=== PATIENT | male | born 1970 | race American Indian/Alaskan Native ===

== ENCOUNTER 2017-10-23 21:52 | Emergency (ER) | payer SELFPAY ==
[2017-10-23 23:37] LABS: Hematocrit 49.6 % (35.5-45.6); Hemoglobin 16.2 gm/dl (11.8-15.2); Mean Corpuscular HGB Conc 33 % (32-34); Mean Corpuscular Hemoglobin 27 pg (28-32); Mean Corpuscular Volume 83 fl (84-94); Platelet Count 181 K/mm3 (140-440); Red Blood Count 5.98 M/mm3 (3.65-5.03); Red Cell Distribution Width 14.2 % (13.2-15.2)
--- NOTE | 2017-10-24 00:06 | XRay Report ---
FINAL REPORT PROCEDURE: XR CHEST ROUTINE 2V TECHNIQUE: PA and lateral chest radiographs were obtained. CPT 96417 HISTORY: shortness of breath COMPARISON: No prior studies are available for comparison. FINDINGS: Heart: Normal. Mediastinum/Vessels: Normal. Lungs/Pleural space: Normal. Bony thorax: No acute osseous abnormality. Other: IMPRESSION: There is no evidence of an acute cardiopulmonary process.
[2017-10-24 00:35] LABS: Bilirubin,Urine SM (Negative); Blood,Urine NEG (Negative); Color,Urine Amber (Yellow); Hyaline Casts,Urine 37 /LPF; Mucus,Urine 1+ /HPF
[2017-10-24 00:56] LABS: Ictotest,Urine Negative (Negative)
[2017-10-24 01:22] LABS: BUN/Creatinine Ratio 10; Blood Urea Nitrogen 10 mg/dL (9-20); Calcium 9.2 mg/dL (8.4-10.2); Hemolysis Index 6
[2017-10-24] MEDS ORDERED: MOTRIN PO ONE (02:30)
[2017-10-24] MEDS ORDERED: NORCO 5/325 PO ONE (02:30)
--- NOTE | 2017-10-24 02:30 | Emergency Department Report ---
ED Fever HPI - General Chief Complaint: Upper Respiratory Infection Stated Complaint: FLU SX Time Seen by Provider: 10/24/17 02:25 Source: patient - History of Present Illness Timing/Duration: other (2 weeks) Fever Severity/Quality: subjective Associated Symptoms: cough, muscle aches, sore throat ED Review of Systems ROS: Stated complaint: FLU SX Other details as noted in HPI ED Past Medical Hx - Past Medical History Previous Medical History?: No - Surgical History Past Surgical History?: Yes Additional Surgical History: eye surgery - Social History Smoking Status: Current Every Day Smoker Substance Use Type: None ED Physical Exam - General Limitations: No Limitations General appearance: alert, in no apparent distress - Head Head exam: Present: atraumatic, normocephalic - Eye Eye exam: Present: normal appearance - ENT ENT exam: Present: normal orophraynx, mucous membranes moist - Neck Neck exam: Present: normal inspection. Absent: tenderness, meningismus - Respiratory Respiratory exam: Present: normal lung sounds bilaterally. Absent: respiratory distress, wheezes, rales, rhonchi - Cardiovascular Cardiovascular Exam: Present: regular rate, normal rhythm. Absent: systolic murmur, diastolic murmur, rubs, gallop - GI/Abdominal GI/Abdominal exam: Present: soft, normal bowel sounds. Absent: distended, tenderness, guarding, rebound - Rectal Rectal exam: Present: deferred - Extremities Exam Extremities exam: Present: normal inspection - Back Exam Back exam: Present: normal inspection - Neurological Exam Neurological exam: Present: alert, oriented X3 - Psychiatric Psychiatric exam: Present: normal affect, normal mood - Skin Skin exam: Present: warm, dry, intact, normal color. Absent: rash ED Course Vital Signs 10/23/17 10/24/17 22:48 00:47 Temperature 99.0 F Pulse Rate 95 H 79 Respiratory 17 22 Rate Blood Pressure 127/89 125/81 O2 Sat by Pulse 96 73 L Oximetry ED Medical Decision Making - Lab Data Result diagrams: 10/23/17 23:07 10/23/17 23:07 Laboratory Results - last 24 hr 10/23/17 10/23/17 10/24/17 23:07 23:07 Unknown WBC 5.0 RBC 5.98 H Hgb 16.2 H Hct 49.6 H MCV 83 L MCH 27 L MCHC 33 RDW 14.2 Plt Count 181 [place] % (Auto) Cold Header Sodium 136 L Potassium 3.9 Chloride 88.3 L Carbon Dioxide 28 Anion Gap 24 BUN 10 Creatinine 1.0 Estimated GFR > 60 BUN/Creatinine Ratio 10 Glucose 90 Calcium 9.2 Urine Color [place] Urine Turbidity Clear Urine pH 5.0 Ur Specific [place] 1.038 H Urine Protein 100 mg/dl Urine Glucose (UA) Neg Urine Ketones 20 Urine Blood Neg Urine Nitrite Neg Urine Bilirubin Sm Urine Ictotest Negative Urine Urobilinogen 2.0 Ur Leukocyte Esterase Neg Urine WBC (Auto) 15.0 H Urine RBC (Auto) 10.0 U Epithel Cells (Auto) 6.0 Hyaline Casts 37 Urine Mucus 1+ Vital Signs - 24 hr 10/23/17 10/24/17 22:48 00:47 Temperature 99.0 F Pulse Rate 95 H 79 Respiratory 17 22 Rate Blood Pressure 127/89 125/81 O2 Sat by Pulse 96 73 L Oximetry - Medical Decision Making 2 weeks of fever, sore throat cough body aches. rx: amoxicillin for prolonged symptoms persistent pharyngitis, ibuprofen tylenol #3 hx of tobacco use Critical care attestation.: If time is entered above; I have spent that time in minutes in the direct care of this critically ill patient, excluding procedure time. ED Disposition Clinical Impression: Viral syndrome, Acute pharyngitis Disposition: DC-01 TO HOME OR SELFCARE Is pt being admited?: No Does the pt Need Aspirin: No Condition: Stable Instructions: Pharyngitis (ED) Referrals: [facility] [Outside] - 3-5 Days Time of Disposition: 02:29
[2017-10-24 04:15] VITALS: BP 109/73
[2017-10-24 05:28] LABS: Band Neutrophils # (Manual) 0.4 K/mm3; Basophils % (Manual) 0 % (0.0-1.8); Eosinophils % (Manual) 0 % (0.0-4.3); Total Cells Counted 100
[2017-10-24 05:29] LABS: RBC Morphology Normal
== END 2017-10-24 04:33 | disposition home or self-care (01) ==
LOC: ED 21:52
DX: B34.9 Viral infection, unspecified (principal); J02.9 Acute pharyngitis, unspecified; F17.200 Nicotine dependence, unspecified, uncomplicated
CPT/HCPCS: 36415; 71046; 80048; 81001; 85007; 85025

== ENCOUNTER 2017-11-11 11:51 | Emergency (ER) | payer SELFPAY ==
[2017-11-11 12:02] VITALS: BP 131/96
--- NOTE | 2017-11-11 14:31 | Emergency Department Report ---
ED General Adult HPI - General Chief complaint: Skin/Abscess/Foreign Body Stated complaint: LUMP IN GROIN AND BUTTOCKS Time Seen by Provider: 11/11/17 14:06 Source: patient Mode of arrival: Ambulatory Limitations: No Limitations - History of Present Illness Initial comments: 47-year-old Bangl[place] male comes in complaining of right groin swelling in having difficulty urinating. His importance that he was recently placed on amoxicillin and ibuprofen and Tylenol 3 for pharyngitis back in 10/24/2017. Patient reports no other past medical history he is currently taking no medications. He has no known drug allergies. Patient denies any fever or chills no nausea no vomiting. He reports that he just has a hard time urinating. He also reports that he has rectal pain but not difficulty having the stool. Severity scale (0 -10): 7 - Related Data Previous Rx's Medication Instructions Recorded Last Taken Type Acetaminophen/Codeine [Tylenol 2 tab PO Q6H PRN #16 tab 10/24/17 Unknown Rx /Codeine # 3 tab] Amoxicillin [Amoxicillin TAB] 875 mg PO BID 10 Days #20 tablet 10/24/17 Unknown Rx Ibuprofen 800 mg PO TID 5 Days #15 tablet 10/24/17 Unknown Rx Tamsulosin [Flomax] 0.4 mg PO QDAY #15 cap 11/11/17 Unknown Rx Allergies Allergy/AdvReac Type Severity Reaction Status Date / Time No Known Allergies Allergy Unverified 10/23/17 22:53 ED Review of Systems ROS: Stated complaint: LUMP IN GROIN AND BUTTOCKS Other details as noted in HPI Constitutional: denies: chills, fever Eyes: denies: eye pain, eye discharge, vision change ENT: denies: ear pain, throat pain Respiratory: denies: cough, shortness of breath, wheezing Cardiovascular: denies: chest pain, palpitations Endocrine: no symptoms reported Gastrointestinal: denies: abdominal pain, nausea, diarrhea Genitourinary: urgency, other (difficulty voiding) Musculoskeletal: denies: back pain, joint swelling, arthralgia Skin: denies: rash, lesions ED Past Medical Hx - Past Medical History Previous Medical History?: No - Surgical History Additional Surgical History: eye surgery - Social History Smoking Status: Current Every Day Smoker Substance Use Type: Alcohol - Medications Home Medications: Home Medications Medication Instructions Recorded Confirmed Last Taken Type Acetaminophen/Codeine [Tylenol 2 tab PO Q6H PRN #16 tab 10/24/17 Unknown Rx /Codeine # 3 tab] Amoxicillin [Amoxicillin TAB] 875 mg PO BID 10 Days #20 tablet 10/24/17 Unknown Rx Ibuprofen 800 mg PO TID 5 Days #15 tablet 10/24/17 Unknown Rx Tamsulosin [Flomax] 0.4 mg PO QDAY #15 cap 11/11/17 Unknown Rx ED Physical Exam - General Limitations: No Limitations General appearance: alert, in no apparent distress - Head Head exam: Present: atraumatic, normocephalic - Eye Eye exam: Present: normal appearance - ENT ENT exam: Present: normal exam, mucous membranes moist, other (absent teeth in the front) - Neck Neck exam: Present: normal inspection - Respiratory Respiratory exam: Present: normal lung sounds bilaterally. Absent: respiratory distress - Cardiovascular Cardiovascular Exam: Present: regular rate, normal rhythm. Absent: systolic murmur, diastolic murmur, rubs, gallop - GI/Abdominal GI/Abdominal exam: Present: soft. Absent: distended, tenderness, guarding - Rectal Rectal exam: Present: normal inspection, normal rectal tone, prostate tenderness , prostate enlargement. Absent: fecal impaction, mass - exam: Present: normal inspection, other (lymphadenopathy bilateral groin) - Back Exam Back exam: Present: normal inspection - Neurological Exam Neurological exam: Present: alert, oriented X3 - Psychiatric Psychiatric exam: Present: normal affect, normal mood - Skin Skin exam: Present: warm, dry, intact, normal color. Absent: rash ED Course Vital Signs 11/11/17 11:59 Temperature 98.0 F Pulse Rate 107 H Respiratory 18 Rate Blood Pressure 131/96 O2 Sat by Pulse 100 Oximetry ED Medical Decision Making - Lab Data Result diagrams: 11/11/17 14:46 11/11/17 14:46 - Medical Decision Making Patient's been evaluated by this provider fast track. I discussed the patient would do some blood work and urine and reevaluate patient. Concern for either BPH , prostatitis or urinary tract infection. Critical care attestation.: If time is entered above; I have spent that time in minutes in the direct care of this critically ill patient, excluding procedure time. ED Disposition Clinical Impression: Urinary urgency Disposition: DC-01 TO HOME OR SELFCARE Is pt being admited?: No Does the pt Need Aspirin: No Condition: Stable Additional Instructions: Please take medication as prescribed. Please follow-up with the urologist for further evaluation and studies. Prescriptions: Tamsulosin [Flomax] 0.4 mg PO QDAY #15 cap Referrals: PRIMARY CARE, [Primary Care Provider] - 3-5 Days ISA RINCON MD [Staff Physician] - 3-5 Days SONAL BUSH MD [Referring] - 3-5 Days WILLI BERKOWITZ MD [Staff Physician] - 3-5 Days Forms: Work/School Release Form(ED), Accompanied Note
[2017-11-11 15:02] LABS: Basophils # (Auto) 0.1 K/mm3 (0.0-0.1); Basophils % (Auto) 0.8 % (0.0-1.8); Eosinophils % (Auto) 0.3 % (0.0-4.3); Hematocrit 42.2 % (35.5-45.6); Lymphocytes # (Auto) 1.9 K/mm3 (1.2-5.4); Lymphocytes % (Auto) 25.1 % (13.4-35.0); Mean Corpuscular HGB Conc 33 % (32-34); Mean Corpuscular Hemoglobin 27 pg (28-32); Mean Corpuscular Volume 82 fl (84-94); Monocytes # (Auto) 0.7 K/mm3 (0.0-0.8); Monocytes % (Auto) 8.9 % (0.0-7.3); Platelet Count 218 K/mm3 (140-440); Red Blood Count 5.17 M/mm3 (3.65-5.03); Red Cell Distribution Width 14.6 % (13.2-15.2)
[2017-11-11 15:21] LABS: Alanine Aminotransferase 11 units/L (7-56); Albumin 3.7 g/dL (3.9-5); BUN/Creatinine Ratio 10; Blood Urea Nitrogen 8 mg/dL (9-20); Calcium 9.3 mg/dL (8.4-10.2); Hemolysis Index 5
[2017-11-11] MEDS ORDERED: TYLENOL PO ONE (17:31)
[2017-11-11 18:58] LABS: Bilirubin,Urine NEG (Negative); Blood,Urine SM (Negative); Color,Urine Yellow (Yellow); Mucus,Urine FEW /HPF; Urobilinogen,Urine < 2.0 mg/dL (<2.0)
== END 2017-11-11 21:26 | disposition home or self-care (01) ==
LOC: ED 11:51
DX: R39.15 Urgency of urination (principal); F17.200 Nicotine dependence, unspecified, uncomplicated
CPT/HCPCS: 36415; 80053; 81001; 84153; 85025; 99283